=== PATIENT | female | born 1950 | race Caucasian/White ===

== ENCOUNTER 2016-09-21 10:57 | Observation (INO) | payer MEDICARE, MEDICAID ==
[2016-09-21] VITALS (12 sets, daily range): BP systolic 136–191; BP diastolic 75–97; PULSE 67–95; RESP 11–20; O2SAT 94–96
[~2016-09-21] VITALS: Ht 161.9 cm; Wt 77.4 kg
[~2016-09-21 10:57] MED LIST: CEPH500C PO; IBUP-1152 PO; IND40 PO; LEVO100T45 PO; LISI10TA9 PO; [UNRECOGNIZED DRUG - CODE] PO
--- NOTE | 2016-09-21 11:25 | ED.REPORT ---
HPI-General Illness Date of Service Sep 21, 2016 ED Provider: Zainab Hansen MD 65 year old female with HTN presents to the ER with right arm weakness onset this morning at 10:15. She states that she woke up this morning, got a cup of coffee, and sat down to write in her journal. After writing several lines she experienced sudden onset loss of function in her right hand, and was unable to write. Since the incident she has regained function of the extremity. Associated symptoms include a sensation of heaviness in her upper extremities. Patient denies history of CVA or ID. Nursing Notes Stated Complaint: RIGHT ARM WEAKNESS Chief Complaint: Neuro Symptoms/ Deficits Nursing Notes Reviewed: Yes Allergies: Coded Allergies: No Known Allergies (Unverified Allergy, Unknown, 09/21/16) Scheduled Acetylcysteine (Nac) 500 Mg Capsule Unknown Dose PO DAILY Amlodipine (Amlodipine) 5 Mg Tablet 5 MG PO DAILY Ascorbic Acid (Vitamin C) 1,000 Mg Tab.chew 1,000 MG PO BID Azithromycin (Zithromax (Z-Marshal)) 250 Mg Tablet 250 MG PO daily x 5 days Bupropion ER (Bupropion ER) 100 Mg Tablet.er 100 MG PO BID Cholecalciferol (Vitamin D3) (Vitamin D3) 1,000 Unit Tab.chew 1,000 UNIT PO DAILY Coconut Oil (Coconut Oil) 1,000 Mg Capsule 1,000 MG PO DAILY Hydrochlorothiazide (Hydrochlorothiazide) 12.5 Mg Capsule 12.5 MG PO QAM Lactobacillus Acidophilus (Probiotic) 1 Each Capsule 1 EACH PO DAILY Melatonin/Pyridoxine HCl (B6) (Melatonin 10 mg Tablet) 1 Each Tab.mphase 1 EACH PO HS Multivitamin (Once Daily) 1 Each Tablet 1 EACH PO DAILY [place]-3/Dha/Epa/Fish Oil (Fish Oil 1,000 mg Softgel) 1 Each Capsule 1 EACH PO DAILY Prasterone (Dhea) (Dhea) 25 Mg Capsule Unknown Dose PO DAILY Ranitidine (Zantac) 150 Mg Tablet 150 MG PO BID Scheduled PRN Buspirone (Buspirone) 10 Mg Tablet 10 MG PO BID PRN PRN For Anxiety Dextromethorphan HBr (Robitussin) 15 Mg Capsule 15 MG PO DAILY PRN PRN For Cough Meloxicam (Meloxicam) 7.5 Mg Tablet 7.5 MG PO BID PRN PRN For Pain Polyethylene Glycol 3350 (Miralax) 17 Gm Powd.pack 17 GM PO DAILY PRN PRN For Constipation General Time Seen by MD: 11:22 Chief Complaint Other (Right Arm Weakness) Hx Obtained From: Patient Arrived By: Walk-in Sudden in Onset?: Yes Onset Occurred: 1 - 4 hours ago (10:15) Similar Sx Previous: No Past Medical History Past Medical History Hypothyroid Reports: Hypertension Reports: Migraines Smoking History Current Every Day Smoker Social History Drug Use: In recovery Ambulatory Status Independent Review of Systems Full Review of Systems Respiratory: Denies: Non-productive cough, Shortness of breath Cardiovascular: Denies: Chest pain GI: Denies: Nausea, Vomiting Neurologic: Reports: Focal weakness (Right Arm), Denies: Change LOC, Confusion, Dizziness, Headache, Lightheaded, Numbness, Problem walking, Seizure, Shaking, Slurred speech, Syncope, Unable to speak, Vision change Complete sys rev & neg: except as marked. Physical Exam Vital Signs Vital Signs Date Time Temp Pulse Resp B/P Pulse Ox O2 Delivery O2 Flow Rate FiO2 09/21/16 13:12 67 11 191/94 96 Room Air 09/21/16 11:05 36 95 18 157/97 95 Room Air Initial VS: Reviewed Head / Eyes: Atraumatic, Normocephalic Neck: Supple, Non-tender, Full range of motion Extremities: Vascular intact, Neuro intact, No swelling, No tenderness Skin: Warm, Dry, No cyanosis Psychiatric: Mood/affect normal, Behavior normal, Normal thought content General/Constitutional: Awake, Alert, No acute distress, Well developed, Well nourished Respiratory / Chest: Breath sounds NL, No respiratory distress, No rales, No rhonchi, No wheezing Cardiovascular: Heart rate NL, Regular rhythm, Heart sounds NL, Cap refill not delayed, Peripheral circulation NL Neurologic: Oriented X3, Speech NL, No motor deficits, No sensory deficits )( TPA Administration/Criteria Stroke Thrombolytic Therapy : TPA Considered: No TPA Administered Intravenously: No, not indicated (NIH Score of 0. 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 (0) Horizontal EO Movements: None (0) Visual Paige: No visual loss (0) Facial Palsy: Normal symmetry (0) Right Arm Motor Drift (10s): No drift 10 sec (0) Left Arm Motor Drift (10s): No drift 10 sec (0) Right Leg Motor Drift (5s): No drift 5 sec (0) Left Leg Motor Drift (5s): No drift 5 sec (0) Limb Ataxia FNF/Heel-Crenshaw: No ataxia (0) Sensation (Arms/Legs/Face): No sensory loss (0) Language Aphasia: No aphasia, normal (0) Dysarthria: No dysarthria, normal (0) Extinction/Inattention: No exctinct/inattent (0) NIHSS Score: 0 Time NIHSS Performed: 11:30 Date NIHSS Performed: Sep 21, 2016 Interpretation & Diagnostics Lab Results Interpretation Result Diagram: 09/21/16 1210 09/21/16 1205 Test 09/21/16 12:05 09/21/16 12:10 Sodium Level 141mEq/L (134-144) Potassium Level 4.1mEq/L (3.5-5.2) Chloride Level 102mEq/L (97-108) Carbon Dioxide Level 23mmol/L (18-29) Blood Urea Nitrogen 20mg/dL (8-27) Creatinine 0.73mg/dL (0.57-1.00) Estimat Glomerular Filtration Rate 114mL/min (>59) Glucose Level 110mg/dL (60-99) Calcium Level 9.0mg/dL (8.5-10.1) Total Bilirubin 0.4mg/dL (0.0-1.2) Aspartate Amino Transf (AST/SGOT) 22U/L (0-50) Alanine Aminotransferase (ALT/SGPT) 32U/L (0-32) Alkaline Phosphatase 69U/L (25-165) Troponin T 0.010ug/L (0.0-0.011) Total Protein 7.0g/dL (6.4-8.4) Albumin 4.4g/dL (3.4-5.0) White Blood Count 8.1th/mm3 (3.8-10.1) Red Blood Count 4.36mil/mm3 (3.90-5.20) Hemoglobin 14.4g/dL (12.0-15.6) Hematocrit 42.2% (35.0-46.0) Mean Corpuscular Volume 96.8fL (81-100) Mean Corpuscular Hemoglobin 33.0pg (27.0-35.0) Mean Corpuscular Hemoglobin Concent 34.1% (32.0-37.0) Red Cell Distribution Width 13.4% (12.3-15.4) Platelet Count 198bil/L (150-400) Neutrophils (%) (Auto) 57.4% (40-74) Lymphocytes (%) (Auto) 26.2% (14-46) Monocytes (%) (Auto) 9.1% (4-12) Eosinophils (%) (Auto) 4.9% (0-5) Basophils (%) (Auto) 1.0% (0-3) Hold Clements Top Tube Received (Received) ECG Interpretation Time: 12:57 Interpreted by: ED physician Normal ECG Interpretation: Normal rate, Normal sinus rhythm, No acute ischemic changes, Normal QRS, Normal axis, Normal intervals, No change from prior ECGs, Adequate tracing CT Head Interpretation PROCEDURE: CT ANGIO BRAIN NECK TPA IMPRESSION: 1. No hemodynamically significant stenosis or vascular occlusion. 2. No acute intracranial disease process. 3. No intracranial hemorrhage. 4. Findings telephoned to Dr. Zainab Hansen on 09/21/2016 at 1247 hrs. Dictated by: Junie Mathews MD, PhD on 09/21/2016 at 12:44 Approved by: Junie Mathews MD, PhD on 09/21/2016 at 12:54 Study: Head CT w contrast Interpretation / Wet Read by: Interpret - Radiologist Re-Eval/Medical Decision Source of Hx: Old records Time of Eval: 11:32 Re-Evaluation/Progress Note: Discussed need for admission and plan of care. Patient is amenable to the plan. Consultation #1: Referral / Consult Name: Junie Mathews MD, PhD Consulted With: On-call physician (Radiology) Call Returned at: 12:51 Note: No thrombus on CT. Consultation #2: Referral / Consult Name: Aaliyah Flowers MD Consulted With: Hospitalist Call Returned at: 14:23 Patient Resource Coordinator: Agrees with eval, Agrees with plan, Accepts admit Counseled Regarding: Diagnosis, Lab results, Need for admission Discharge & Departure Primary Impression: TIA (transient ischemic attack) Disposition: ADMITTED TO HOSPITAL Discharge Condition All VS Reviewed: Yes Condition: Stable Referrals: Matilde Oconnor MD (PCP) Gustavo Attestation Portions of this note were transcribed by Patel Triana. I, Dr. Hansen, personally performed the history, physical exam and medical decision-making; I reviewed and confirmed the accuracy of the information in the transcribed note. Signed by: Gustavo Perez, 09/21/2016 and 14:24 copies to: Matilde Oconnor MD, Shawna L MD Sep 21, 2016 11:25 PATEL TRIANA Sep 21, 2016 11:29
[2016-09-21 12:26] LABS: EOSINOPHILS % (AUTO) 4.9 % (0-5); MONOCYTES % (AUTO) 9.1 % (4-12); Mean Corpuscular Volume 96.8 fL (81-100); NEUTROPHILS % (AUTO) 57.4 % (40-74); Platelet Count 198 bil/L (150-400)
[2016-09-21 12:48] LABS: TROPONIN T 0.01 ug/L (0.0-0.011)
--- NOTE | 2016-09-21 12:56 | DRSVH ---
PROCEDURE: CT ANGIO BRAIN NECK TPA INDICATIONS: RIGHT HAND WEAKNESS TECHNIQUE: Pre-contrast 4.5 mm thick sections acquired from the foramen magnum to the vertex. After the adminis tration of intravenous contrast, 1 mm thick sections acquired from the aortic arch through the [place] of [place]. Post-contrast 4.5 mm thick sections then re-acquired from the foramen magnum to the vert ex. 3-dimensional hjnsbom-nxtkputvf-mlvdmexrzh (MIP) and/or volume rendering reformats were acquired of the central intracranial vasculature and neck separately. For radiation dose reduction, the foll owing was used: automated exposure control, adjustment of mA and/or kV according to patient size. COMPARISON: None. FINDINGS: Image quality: Excellent. BRAIN: CSF spaces: Ventricles are normal in size and shape. Basal cisterns are patent. No extra-axial flu id collections. Brain: No midline shift. No intracranial bleeds or masses. Walker-white matter interface appears int act. Skull and face: Calvarium and facial bones appear intact, without suspicious lesions. Orbits appear normal. Sinuses: Sinuses and mastoids are clear. HEAD CT ANGIOGRAPHY: Anterior circulation: Intracranial internal carotid arteries are normal in flow. Calcified atherosc lerotic plaque is noted in the cavernous segments of the internal carotid arteries bilaterally. Ather osclerosis causes moderate stenosis of the cavernous segment of the left internal carotid artery and mild stenosis of the cavernous segment of the right internal carotid artery The flow within the paire d anterior cerebral arteries is normal and symmetric. The flow within the middle cerebral arteries i s normal and symmetric. The anterior communicating artery is seen. No aneurysms are seen. Posterior circulation: Visualized portions of the vertebral arteries demonstrate normal caliber, and join to form a normal appearing basilar artery. Flow within the posterior cerebral arteries is norm al and symmetric. No aneurysms are seen. Normal contrast opacification of the dural sinuses is noted. NECK CT ANGIOGRAPHY: Carotid system: The great vessels demonstrate a conventional anatomy as they arise from the aortic a rch. The origins of the common carotid arteries appear patent. The common carotid arteries demonstr ate normal courses. Atherosclerotic plaque is noted in the origin of the internal carotid arteries bi laterally which causes less than 50% stenosis. The bifurcation regions are both widely patent. The internal carotid arteries demonstrate normal calibers and courses. Posterior circulation: The origins of the vertebral arteries both appear widely patent. The more galo perior extracranial portions of both vertebral arteries also demonstrate normal courses and calibers. They join to form a normal appearing basilar artery. Soft tissues: Visualized neck soft tissues demonstrate no suspicious abnormalities. Bones: No suspicious bony lesions. Visualized cervical spine appears normally aligned. IMPRESSION: 1. No hemodynamically significant stenosis or vascular occlusion. 2. No acute intracranial disease process. 3. No intracranial hemorrhage. 4. Findings telephoned to Dr. Zainab Hansen on 09/21/2016 at 1247 hrs. Dictated by: Junie Mathews MD, PhD on 09/21/2016 at 12:44 Approved by: Junie Mathews MD, PhD on 09/21/2016 at 12:54
[2016-09-21] MEDS ORDERED: HYDR12.5 PO (14:50)
[2016-09-21] MEDS ORDERED: ASCO100089 PO (14:50)
[2016-09-21] MEDS ORDERED: DEXT15CA28 PO (14:50)
[2016-09-21] MEDS ORDERED: AMLO5TAB2 PO (14:50)
[2016-09-21] MEDS ORDERED: RANI150T11 PO (14:50)
[2016-09-21] MEDS ORDERED: MULT-666 PO (14:50)
[2016-09-21] MEDS ORDERED: BUPR100T8 PO (14:50)
[2016-09-21] MEDS ORDERED: BUSP10TA2 PO (14:50)
[2016-09-21] MEDS ORDERED: AZIT250T4 PO (14:50)
[2016-09-21] MEDS ORDERED: MELO-259 PO (14:50)
[2016-09-21] MEDS ORDERED: OMEG-38 PO (14:51)
[2016-09-21] MEDS ORDERED: COCO1000 PO (14:51)
[2016-09-21] MEDS ORDERED: POLY17PO6 PO (14:51)
[2016-09-21] MEDS ORDERED: PRAS25CA PO (14:51)
[2016-09-21] MEDS ORDERED: CHOL10008 PO (14:51)
[2016-09-21] MEDS ORDERED: LACT1CAP65 PO (14:51)
[2016-09-21] MEDS ORDERED: MELA1TAB21 PO (14:51)
[2016-09-21] MEDS ORDERED: ACET500C47 PO (14:51)
[2016-09-21] MEDS ORDERED: Ondansetron 2 mg/mL 2 mL Inj IVPUSH PRN (15:15)
[2016-09-21] MEDS ORDERED: Polyethylene Glycol (PEG) 17 Gm Powder PO PRN (15:30)
[2016-09-21] MEDS ORDERED: Alum-Mag Hydrox-Simeth 30 mL Suspension PO PRN (15:30)
[2016-09-21] MEDS ORDERED: Labetalol 5 mg/mL 4 mL Inj IVPUSH PRN (15:30)
[2016-09-21] MEDS ORDERED: Ondansetron 2 mg/mL 2 mL Inj IV PRN (15:30)
[2016-09-21 15:48] LABS: INR 0.95 ratio
--- NOTE | 2016-09-21 15:49 | PCM.HPMED ---
Subjective Date of Service Sep 21, 2016 Primary Provider: Admitting Physician: Aaliyah Flowers MD Primary Care Physician: Matilde Oconnor MD Attending Physician: Aaliyah Flowers MD Admit Status: From the Emergency Department, 23-Hour Observation, Remote Telemetry Chief Complaint: Right hand clumsiness History of Present Illness: This is a 65-year-old female who has a history of hypertension who presented with right hand weakness and clumsiness. She notes it lasted for about an hour. Started this morning at about 10 AM when she was doing some writing in a journal. She notes it was most dramatic over the first 20 minutes and then took about an hour to completely resolve. She notes no prior history of similar. She notes it was only her hand and not her arm per se. She noted no visual changes. She does not take aspirin at home. Has never had any neurological symptoms prior to this. Her evaluation in the emergency room included negative CTA scan of head and neck which did not reveal any abnormalities. Review of Systems: All other review of systems are reviewed and are negative except for as in history of present illness. Allergies Coded Allergies: No Known Allergies (Unverified Allergy, Unknown, 09/21/16) Home Medications Norvasc 5 mg by mouth daily Wellbutrin ER 100 mg by mouth twice a day BuSpar 10 mg by mouth twice a day when necessary anxiety Hydrochlorothiazide 12.5 mg by mouth daily Lactobacillus by mouth daily Melatonin 10 mg by mouth daily Meloxicam 7.5 mg by mouth twice a day when necessary pain Multiple vitamin 1 tablet by mouth daily Zantac 150 mg by mouth twice a day PMH Past Medical History Hypothyroid Reports: Hypertension Reports: Migraines Surgical History Status post tubal ligation Status post hysterectomy Family History Goiter with a history of carotid stenosis and femoral artery stenosis in her 60s Social History Hx Alcohol Use: No (not for 28 years, hx of etoh) Hx Substance Use: Yes ( rehab facility for narcotic abuse 2009) Hx Tobacco Use: Yes (4-5 cigarettes a day) Smoking Status: Current Every Day Smoker Living Arrangement: with Family Exam Vital Signs Vital Sign - Last Date Time Temp Pulse Resp B/P Pulse Ox O2 Delivery O2 Flow Rate FiO2 09/21/16 14:46 68 16 173/77 95 09/21/16 14:17 36 Room Air Exam Constitutional: Middle-aged woman in no acute distress Head: Normocephalic atraumatic Eyes: PERRLA DC EOMI Mouth: No lesions Neck: Carotids 2+ over 4 without bruits Chest: Clear to auscultation Cor: Regular rate and rhythm S1-S2 without murmur Abdomen: Soft nontender bowel sounds present Extremities: No pedal edema noted Skin: No rashes Psych: Mood and affect are appropriate Neurological: Alert and oriented 3, motor and sensory are intact bilaterally Lab and Diagnostics Labs Laboratory Tests 72 Hours Test 09/21/16 12:05 09/21/16 12:10 Prothrombin Time 10.1sec (8.1-12.5) Prothromb Time International Ratio 0.95ratio Sodium Level 141mEq/L (134-144) Potassium Level 4.1mEq/L (3.5-5.2) Chloride Level 102mEq/L (97-108) Carbon Dioxide Level 23mmol/L (18-29) Blood Urea Nitrogen 20mg/dL (8-27) Creatinine 0.73mg/dL (0.57-1.00) Estimat Glomerular Filtration Rate 114mL/min (>59) Glucose Level 110mg/dL (60-99) Calcium Level 9.0mg/dL (8.5-10.1) Magnesium Level 2.3mg/dL (1.6-2.6) Total Bilirubin 0.4mg/dL (0.0-1.2) Aspartate Amino Transf (AST/SGOT) 22U/L (0-50) Alanine Aminotransferase (ALT/SGPT) 32U/L (0-32) Alkaline Phosphatase 69U/L (25-165) Troponin T 0.010ug/L (0.0-0.011) Total Protein 7.0g/dL (6.4-8.4) Albumin 4.4g/dL (3.4-5.0) White Blood Count 8.1th/mm3 (3.8-10.1) Red Blood Count 4.36mil/mm3 (3.90-5.20) Hemoglobin 14.4g/dL (12.0-15.6) Hematocrit 42.2% (35.0-46.0) Mean Corpuscular Volume 96.8fL (81-100) Mean Corpuscular Hemoglobin 33.0pg (27.0-35.0) Mean Corpuscular Hemoglobin Concent 34.1% (32.0-37.0) Red Cell Distribution Width 13.4% (12.3-15.4) Platelet Count 198bil/L (150-400) Neutrophils (%) (Auto) 57.4% (40-74) Lymphocytes (%) (Auto) 26.2% (14-46) Monocytes (%) (Auto) 9.1% (4-12) Eosinophils (%) (Auto) 4.9% (0-5) Basophils (%) (Auto) 1.0% (0-3) Hold Clements Top Tube Received (Received) Result Diagram: 09/21/16 1210 09/21/16 1205 X-Rays, CTs and MRIs PROCEDURE: CT ANGIO BRAIN NECK TPA INDICATIONS: RIGHT HAND WEAKNESS TECHNIQUE: Pre-contrast 4.5 mm thick sections acquired from the foramen magnum to the vertex. After the administration of intravenous contrast, 1 mm thick sections acquired from the aortic arch through the [place] of [place]. Post-contrast 4.5 mm thick sections then re-acquired from the foramen magnum to the vertex. 3- dimensional pblciwh-yxmochxgv-kzwbmrvgvo (MIP) and/or volume rendering reformats were acquired of the central intracranial vasculature and neck separately. For radiation dose reduction, the following was used: automated exposure control, adjustment of mA and/or kV according to patient size. COMPARISON: None. FINDINGS: Image quality: Excellent. BRAIN: CSF spaces: Ventricles are normal in size and shape. Basal cisterns are patent. No extra-axial fluid collections. Brain: No midline shift. No intracranial bleeds or masses. Walker-white matter interface appears intact. Skull and face: Calvarium and facial bones appear intact, without suspicious lesions. Orbits appear normal. Sinuses: Sinuses and mastoids are clear. HEAD CT ANGIOGRAPHY: Anterior circulation: Intracranial internal carotid arteries are normal in flow. Calcified atherosclerotic plaque is noted in the cavernous segments of the internal carotid arteries bilaterally. Atherosclerosis causes moderate stenosis of the cavernous segment of the left internal carotid artery and mild stenosis of the cavernous segment of the right internal carotid artery The flow within the paired anterior cerebral arteries is normal and symmetric. The flow within the middle cerebral arteries is normal and symmetric. The anterior communicating artery is seen. No aneurysms are seen. Posterior circulation: Visualized portions of the vertebral arteries demonstrate normal caliber, and join to form a normal appearing basilar artery. Flow within the posterior cerebral arteries is normal and symmetric. No aneurysms are seen. Normal contrast opacification of the dural sinuses is noted. NECK CT ANGIOGRAPHY: Carotid system: The great vessels demonstrate a conventional anatomy as they arise from the aortic arch. The origins of the common carotid arteries appear patent. The common carotid arteries demonstrate normal courses. Atherosclerotic plaque is noted in the origin of the internal carotid arteries bilaterally which causes less than 50% stenosis. The bifurcation regions are both widely patent. The internal carotid arteries demonstrate normal calibers and courses. Posterior circulation: The origins of the vertebral arteries both appear widely patent. The more superior extracranial portions of both vertebral arteries also demonstrate normal courses and calibers. They join to form a normal appearing basilar artery. Soft tissues: Visualized neck soft tissues demonstrate no suspicious abnormalities. Bones: No suspicious bony lesions. Visualized cervical spine appears normally aligned. IMPRESSION: 1. No hemodynamically significant stenosis or vascular occlusion. 2. No acute intracranial disease process. 3. No intracranial hemorrhage. 4. Findings telephoned to Dr. Zainab Hansen on 09/21/2016 at 1247 hrs. Dictated by: Junie Mathews MD, PhD on 09/21/2016 at 12:44 Approved by: Junie Mathews MD, PhD on 09/21/2016 at 12:54 12-lead ECG Sinus rhythm at a rate of 67, no acute abnormalities Assessment & Plan # Possible TIA with right hand clumsiness, acute, resolved, present on admission Check MRI of brain Check echocardiogram Initiate ASA daily CTA of head and neck have already been done without any significant findings Placed on telemetry. # Hypertension, chronic, present on admission Continue current patient's medication regimen Monitor blood pressure # History of anxiety depression, chronic, present on admission Continue current medication regimen # DVT prophylaxis Prophylactic subcutaneousLovenox # Code status Full code Resuscitation Status: CPR: Attempt Resuscitation Time spent 60 minutes Aaliyah Flowers MD Sep 21, 2016 15:49
[2016-09-21] MEDS ORDERED: [UNRECOGNIZED DRUG - CODE] PO (16:03)
--- NOTE | 2016-09-21 18:22 | NUR ---
Arrival/BP Pt arrived via w/ch from ER at 1530. Able to stand and transfer to bed indep. Up to BR, voided before hat was able to place. Pt signed diet against advice form as TUBE COATER not in house and not wanting to eat puree diet. Passed nursing swallow screen in the ER. 1730 paged as pt concerned about continued increase BP, returned call and stated ok to give labetolol despite not meeting criteria. re-took BP, reviewed with patient who stated would rather wait on the IV medication, now asking for buspar - called pharmacy to bring up. Family brought in hamburger and fries with patient. Reviewed what heart healthy diet consists of, S.O took the hamburger with him Tolerating heart healthy diet without signs of cough or choking.
--- NOTE | 2016-09-21 18:28 | NUR ---
[place] this before Pt/family report that she has felt this same sensation prior, unsure of timing. Also reports a bump on right side of head, non-painful just behind right adventist.
[2016-09-21] MEDS: guaiFENesin DM 200-20 mg/10 mL Syrup PO PRN (18:32)
[2016-09-21] MEDS: BusPIRone 15 mg Dividose Tablet PO PRN (18:32)
--- NOTE | 2016-09-21 18:38 | NUR ---
Case Management: SHERRILL explained to patient (and many family members) at 1700 all questions answered. Signed original placed in chart, copy given to patient. "How Medicare Covers Self-Administered Drugs Given in Hospital Outpatient Settings" given to patient. Aurelia Montanez RN
[2016-09-21] MEDS: buPROPion SR 100 mg ER12 Tablet PO SCH (20:59)
[2016-09-21 22:17] LABS: APPEARANCE,URINE CLEAR (CLEAR,HAZY); COLOR,URINE YELLOW (YELLOW); OCCULT BLOOD,URINE NEGATIVE (NEGATIVE); UROBILINOGEN,URINE NORMAL (NORMAL)
[2016-09-22] MEDS: guaiFENesin DM 200-20 mg/10 mL Syrup PO PRN ×2 (00:19→10:31)
[2016-09-22] MEDS: BusPIRone 15 mg Dividose Tablet PO PRN ×2 (01:52→15:08)
[2016-09-22 04:47] VITALS: BP 170/88; PULSE 70; RESP 18; O2SAT 97
--- NOTE | 2016-09-22 06:37 | NUR ---
Activity Pt up independent in room. Pt has stable gait, zero weakness in legs and arms. 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 Pt does have mild to moderate anxiety about stay in hospital. AOX3, PENG. Pt reports 0 pain.
--- NOTE | 2016-09-22 07:20 | NUR ---
MRI Pt at MRI on shift change. Addendum: 09/22/16 at 0757 by MONSERRAT RICKS RN Pt back from MRi at 0735 Stable and w/o complaints. SR 67 on tele. A&ox4.
[2016-09-22 08:00] VITALS: BP 138/78; PULSE 67; RESP 12; O2SAT 96
[2016-09-22] MEDS: buPROPion SR 100 mg ER12 Tablet PO SCH (08:06)
[2016-09-22] MEDS ORDERED: Omega-3 Fatty Acids 1,000 mg Capsule PO SCH (08:30)
[2016-09-22 10:15] VITALS: PULSE 65
--- NOTE | 2016-09-22 10:58 | NUR ---
Rounds notified that pt reports increased word and "thought" searching since admit. Family at bedside requesting discussion with . aware. Addendum: 09/22/16 at 1134 by MONSERRAT RICKS RN MD discussed pt symptoms of word searching at bedside. All family questions answered/addressed. Reinforced stroke education.
--- NOTE | 2016-09-22 11:39 | DRSVH ---
PROCEDURE: MRI BRAIN WITHOUT CONTRAST ([id number]) INDICATIONS: tia TECHNIQUE: Non-contrast axial T1 spin echo, axial T2 fast spin echo, sagittal and axial FLAIR, coronal T2 fast s pin echo, axial gradient echo, axial diffusion and ADC through the brain. COMPARISON: None. FINDINGS: Image quality: Excellent. CSF spaces: Ventricles appear symmetric in size and shape. Basal cisterns are patent. No extra-axi al fluid collections. Brain: No intracranial bleeds or mass effects. There is cerebral volume loss for age. There are mi nimal periventricular and deep white matter chronic small vessel ischemic changes. Brainstem appears normal. Diffusion-weighted images show no acute ischemic insults. No chronic ischemic insults. No rmal intravascular flow voids are present. Skull and face: Calvarial bone marrow is normal in signal. Orbits are normal. Sinuses: Sinuses and mastoids are clear. IMPRESSION: 1. No acute intracranial disease process. 2. No areas of acute or chronic infarction. Dictated by: Junie Mathews MD, PhD on 09/22/2016 at 11:33 Approved by: Junie Mathews MD, PhD on 09/22/2016 at 11:38
[2016-09-22 12:34] VITALS: BP 147/82; PULSE 71; RESP 12; O2SAT 96
--- NOTE | 2016-09-22 14:23 | DRSVH ---
[facility] [address] [place] [address] Echocardiogram Report Name: ANAND CARDONA Study Date: 09/22/2016 Height: 63 in Hospital Exam Location: [facility] Weight: 170 lb Gender: Female BSA: 1.8 m2 : 1950 Age: 65 yrs BP: 170/88 mmHg Reason For Study: TIA Ordering Physician: HOSPITALIST [facility] Performed By: [facility] Staff Referring Physician: FAMILIA FIGUEREDO Interpretation Summary The left ventricle is normal in size and appears mildly hyperdynamic with the ejection fraction visually estimated to be 75-80% with a mild dyssynchronous contraction pattern, consistent with a conduction abnormality but no focal wall motion abnormalities. Assessment of diastolic parameters indicates a relaxation abnormality of the left ventricle, consistent with normal filling pressures. The right ventricle is normal in size and function. Pulmonary artery pressures cannot be estimated because of the lack of a measurable TR jet velocity but the IVC suggests a low right atrial pressure of 3 mm Hg. Both atria are normal in size. The interatrial septum is intact with no evidence for an atrial septal defect by Doppler exam or injection of contrast. The interatrial septum bows toward the right atrium, consistent with probable elevated left atrial pressure. There is no significant valvular heart disease. Procedure: A two-dimensional transthoracic echocardiogram with color flow and Doppler was performed. There is no prior echocardiogram noted for this patient. A saline contrast injection was performed to assess for cardiac shunting. The patient was in normal sinus rhythm during the exam. Left Ventricle: The left ventricle is normal in size. There is normal left ventricular wall thickness. The left ventricle is mildly hyperdynamic. The ejection fraction is estimated to be 75-80%. There is a mild dyssynchronous contraction pattern, consistent with a conduction abnormality. There are no focal wall motion abnormalities. Assessment of diastolic parameters indicates a relaxation abnormality of the left ventricle, consistent with normal filling pressures. Right Ventricle: The right ventricle is normal in size and function. Atria: Both atria are normal in size. The interatrial septum is intact with no evidence for an atrial septal defect. There is no Doppler evidence for an atrial septal defect. Injection of contrast documented no interatrial shunt. The interatrial septum bows toward right atrium consistent with elevated left atrial pressure. Mitral Valve: There is mild mitral annular calcification. There is trace mitral regurgitation. Aortic Valve: The aortic valve is trileaflet. The aortic valve is slightly calcified. The aortic valve opens well. There is no aortic valve stenosis. No aortic regurgitation is present. Tricuspid Valve: The tricuspid valve is normal in structure and function. There is trace tricuspid regurgitation. Pulmonary artery pressures cannot be estimated because of the lack of a measurable TR jet velocity. Pulmonic Valve: The pulmonic valve is normal in structure and function. There is no pulmonic valvular regurgitation. There is no significant valvular heart disease. Great Vessels: The aortic root is normal size. The dimensions of the ascending aorta are normal. The IVC is of normal diameter and collapses greater than 50% with a sniff. This suggests a low right atrial pressure of 3 mm Hg. Pericardium/ Pleura There is no pericardial effusion. There is no pleural effusion. MMode/2D Measurements & Calculations LVIDd: 4.0 cm RA long axis LVOT diam LVIDs: 2.7 cm LA A2 area: 17.6 cm FS: 33.3 % LA A4 area: 18.0 cm RA area AoV Opening EPSS: 0.74 cm LA length (vol): 5.0 cm IVSd: 0.87 cm LA vol: 53.9 ml : 8.6 cm Ao root diam LVPWd: 0.95 cm LA vol index RA vol : 14.4 ml asc Aorta Diam : 29.9 ml/m2 RA : 8.0 mm2 LV lopez. diameter/BSA LV sys. diameter/BSA RVD1 (basal) TAPSE: 2.6 cm (cm/m^2): 2.2 (cm/m^2): 1.5 Doppler Measurements & Calculations Ao V2 max MV E max monster MV E/A: 0.76 PA V2 max : 172.8 cm/sec : 69.6 cm/sec Med Peak E' Monster : 77.1 cm/sec Ao max PG MV A max monster PA mean PG : 12.0 mmHg : 91.0 cm/sec E/E' med: 13.7 Ao mean PG MV P1/2t: 70.0 msec Lat Peak E' Monster PA Accel Time : 0.11 sec LVOT Max Monster E/E' lat: 12.9 : 140.4 cm/sec E/e' average: 13.3 MARTHA(I,D): 2.7 cm sev ratio MV dec time MV P1/2t max monster Ao V2 mean LV V1 max PG : 0.24 sec : 111.7 cm/sec Ao V2 VTI: 31.8 cm LV V1 VTI MVA(P1/2t): 3.1 cm2 : 26.9 cm MARTHA(V,D): 2.6 cm2 PA V2 mean MARTHA indexed to BSA : 47.4 cm/sec (cm^2/m^2): 1.5 PA pr(Accel) : 20.8 mmHg Reading Physician:02:22 PM
--- NOTE | 2016-09-22 15:25 | PCM.DC.MED ---
Discharge Summary Date of Service Sep 22, 2016 Dates of Hospitalization Date of Hospital Admission Sep 21, 2016 at 13:55 Date of Discharge: Sep 22, 2016 Providers: Admitting Physician: Aaliyah Flowers MD Primary Care Physician: Matilde Oconnor MD Attending Physician: Aaliyah Flowers MD Diagnosis at Time of Discharge Diagnosis at Time of Discharge TIA/CVA Consultations None Procedures XRay, CTs & MRIs MRI Brain 09/22 1. No acute intracranial disease process. 2. No areas of acute or chronic infarction. CT ANGIO BRAIN/NECK BRAIN: CSF spaces: Ventricles are normal in size and shape. Basal cisterns are patent. No extra-axial fluid collections. Brain: No midline shift. No intracranial bleeds or masses. Walker-white matter interface appears intact. Skull and face: Calvarium and facial bones appear intact, without suspicious lesions. Orbits appear normal. Sinuses: Sinuses and mastoids are clear. HEAD CT ANGIOGRAPHY: Anterior circulation: Intracranial internal carotid arteries are normal in flow. Calcified atherosclerotic plaque is noted in the cavernous segments of the internal carotid arteries bilaterally. Atherosclerosis causes moderate stenosis of the cavernous segment of the left internal carotid artery and mild stenosis of the cavernous segment of the right internal carotid artery The flow within the paired anterior cerebral arteries is normal and symmetric. The flow within the middle cerebral arteries is normal and symmetric. The anterior communicating artery is seen. No aneurysms are seen. Posterior circulation: Visualized portions of the vertebral arteries demonstrate normal caliber, and join to form a normal appearing basilar artery. Flow within the posterior cerebral arteries is normal and symmetric. No aneurysms are seen. Normal contrast opacification of the dural sinuses is noted. NECK CT ANGIOGRAPHY: Carotid system: The great vessels demonstrate a conventional anatomy as they arise from the aortic arch. The origins of the common carotid arteries appear patent. The common carotid arteries demonstrate normal courses. Atherosclerotic plaque is noted in the origin of the internal carotid arteries bilaterally which causes less than 50% stenosis. The bifurcation regions are both widely patent. The internal carotid arteries demonstrate normal calibers and courses. Posterior circulation: The origins of the vertebral arteries both appear widely patent. The more superior extracranial portions of both vertebral arteries also demonstrate normal courses and calibers. They join to form a normal appearing basilar artery. Soft tissues: Visualized neck soft tissues demonstrate no suspicious abnormalities. Bones: No suspicious bony lesions. Visualized cervical spine appears normally aligned. IMPRESSION: 1. No hemodynamically significant stenosis or vascular occlusion. 2. No acute intracranial disease process. 3. No intracranial hemorrhage. Approved by: Junie Mathews MD, PhD on 09/21/2016 at 12:54 ECG 12 Lead Sinus rhythm at a rate of 67, no acute abnormalities Cardiac Echo Impression 09/22 Interpretation Summary The left ventricle is normal in size and appears mildly hyperdynamic with the ejection fraction visually estimated to be 75-80% with a mild dyssynchronous contraction pattern, consistent with a conduction abnormality but no focal wall motion abnormalities. Assessment of diastolic parameters indicates a relaxation abnormality of the left ventricle, consistent with normal filling pressures. The right ventricle is normal in size and function. Pulmonary artery pressures cannot be estimated because of the lack of a measurable TR jet velocity but the IVC suggests a low right atrial pressure of 3 mm Hg. Both atria are normal in size. The interatrial septum is intact with no evidence for an atrial septal defect by Doppler exam or injection of contrast. The interatrial septum bows toward the right atrium, consistent with probable elevated left atrial pressure. There is no significant valvular heart disease. Brief History 65-year-old female who has a history of hypertension who presented with right hand weakness and clumsiness. She notes it lasted for about an hour. Started this morning at about 10 AM when she was doing some writing in a journal. She notes it was most dramatic over the first 20 minutes and then took about an hour to completely resolve. She notes no prior history of similar. She notes it was only her hand and not her arm per se. She noted no visual changes. She does not take aspirin at home. Has never had any neurological symptoms prior to this. Her evaluation in the emergency room included negative CTA scan of head and neck which did not reveal any abnormalities. Hospital Course 65-year-old female admit 09/21 w/ right hand weakness and clumsiness. She notes it lasted for about an hour. # TIA w/ right hand clumsiness, acute, resolved, present on admission, MRI of brain normal 09/22, echo 09/22 abn but not source, ASA daily, CTA of head and neck have already been done without any significant findings 09/21, tely wnl. # Hypertension, chronic, present on admission, Continue current patient's medication regimen, Monitor blood pressure. OK f/u out pt #Hyperlipidemia-goal LDL is less than 100 in the setting we will start her on atorvastatin on discharge. # History of anxiety depression, chronic, present on admission- Continue current medication regimen # DVT prophylaxis- Prophylactic subcutaneous Lovenox # Code status -Full code Workup completed, symptoms largely subsided PT cleared the patient, no note from OT at the time of discharge, speech of evaluated the patient and cleared her swallow however she probably will benefit from some more language therapy. I do not see a note to that extent here. I will refer as an outpatient if she wants to be discharged. Exam Vital Signs (Last) Date Time Temp Pulse Resp B/P Pulse Ox O2 Delivery O2 Flow Rate FiO2 09/22/16 12:34 71 12 147/82 96 Room Air 09/22/16 08:00 36.8 Exam Gen.- A+ O 3 no apparent distress. Heavy female who walked out the door past az and now is sitting on the bed Eyes- open conjunctiva clear, pupils equal nonicteric Mouth- oral mucosa moist, no exudate ENT- ears normal, nose normal Neck- supple/trach midline CVS- RRR no murmur or gallop Lungs- CTA GI- NABS/NT soft Musc- moving 4 no obvious deformity Neuro- cranial nerves II through XII intact to gross examination, nonfocal subjectively she states there are some issues with word finding I find her speech fluid and coherent. Skin- warm and dry, no rashes/lesions/wounds noted Psych- pleasant and appropriate, Test 09/21/16 12:05 09/21/16 12:10 09/21/16 21:55 09/22/16 06:30 Prothrombin Time 10.1sec (8.1-12.5) Prothromb Time International Ratio 0.95ratio Sodium Level 141mEq/L (134-144) Potassium Level 4.1mEq/L (3.5-5.2) Chloride Level 102mEq/L (97-108) Carbon Dioxide Level 23mmol/L (18-29) Blood Urea Nitrogen 20mg/dL (8-27) Creatinine 0.73mg/dL (0.57-1.00) Estimat Glomerular Filtration Rate 114mL/min (>59) Glucose Level 110mg/dL (60-99) Hemoglobin A1c 5.6% (4.8-5.6) Calcium Level 9.0mg/dL (8.5-10.1) Magnesium Level 2.3mg/dL (1.6-2.6) Total Bilirubin 0.4mg/dL (0.0-1.2) Aspartate Amino Transf (AST/SGOT) 22U/L (0-50) Alanine Aminotransferase (ALT/SGPT) 32U/L (0-32) Alkaline Phosphatase 69U/L (25-165) Troponin T 0.010ug/L (0.0-0.011) Total Protein 7.0g/dL (6.4-8.4) Albumin 4.4g/dL (3.4-5.0) White Blood Count 8.1th/mm3 (3.8-10.1) Red Blood Count 4.36mil/mm3 (3.90-5.20) Hemoglobin 14.4g/dL (12.0-15.6) Hematocrit 42.2% (35.0-46.0) Mean Corpuscular Volume 96.8fL (81-100) Mean Corpuscular Hemoglobin 33.0pg (27.0-35.0) Mean Corpuscular Hemoglobin Concent 34.1% (32.0-37.0) Red Cell Distribution Width 13.4% (12.3-15.4) Platelet Count 198bil/L (150-400) Neutrophils (%) (Auto) 57.4% (40-74) Lymphocytes (%) (Auto) 26.2% (14-46) Monocytes (%) (Auto) 9.1% (4-12) Eosinophils (%) (Auto) 4.9% (0-5) Basophils (%) (Auto) 1.0% (0-3) Hold Clements Top Tube Received (Received) Urine Color Yellow (YELLOW) Urine Appearance Clear (CLEAR,HAZY) Urine pH 5.0 (5.0-8.0) Urine Specific [place] 1.015 (1.003-1.035) Urine Protein Negativemg/dL (NEG,TRACE) Urine Glucose (UA) Negativemg/dL (NEGATIVE) Urine Ketones Negativemg/dL (NEGATIVE) Urine Occult Blood Negative (NEGATIVE) Urine Nitrite Negative (NEGATIVE) Urine Bilirubin Negative (NEGATIVE) Urine Urobilinogen Normalmg/dL (NORMAL) Urine Leukocyte Esterase Negative (NEGATIVE) Urine RBC 0-2/hpf (0-2) Urine WBC 0-5/hpf (0-5) Urine Epithelial Cells Few/hpf (NONE-MOD) Urine Crystals None seen (NONE SEEN) Urine Bacteria None/hpf (NONE-FEW) Urine Hyaline Casts None/lpf (NONE) Urine Granular Casts None seen (NONE SEEN) Urine Waxy Casts None seen (NONE SEEN) Urine Red Blood Cell Casts None seen (NONE SEEN) Urine White Blood Cell Casts None seen (NONE SEEN) Urine Mucus None seen (None Seen) Urine Trichomonas None seen (NONE SEEN) Urine Yeast None (NONE SEEN) Urine Culture Reflexed Not indicated Triglycerides Level 235mg/dL (0-149) Cholesterol Level 204mg/dL (100-199) LDL Cholesterol, Calculated 119.000mg/dL (0-99) VLDL Cholesterol 47.000mg/dL HDL Cholesterol 38mg/dL (>39) Cholesterol/HDL Ratio 5.37 (0.0-4.4) Discharge Medications Discharge Medications Acetylcysteine (Nac) 500 Mg Capsule Unknown Dose PO DAILY (Reported) Amlodipine (Amlodipine) 5 Mg Tablet 5 MG PO DAILY (Reported) Ascorbic Acid (Vitamin C) 1,000 Mg Tab.chew 1,000 MG PO BID (Reported) Atorvastatin Calcium (Atorvastatin Calcium) 40 Mg Tablet 40 MG PO HS Prescribed by: THANH BOATENG MD Azithromycin (Zithromax (Z-Marshal)) 250 Mg Tablet 250 MG PO daily x 5 days ( Reported) Bupropion ER (Bupropion ER) 100 Mg Tablet.er 100 MG PO BID (Reported) Cholecalciferol (Vitamin D3) (Vitamin D3) 1,000 Unit Tab.chew 1,000 UNIT PO DAILY (Reported) Coconut Oil (Coconut Oil) 1,000 Mg Capsule 1,000 MG PO DAILY (Reported) Hydrochlorothiazide (Hydrochlorothiazide) 12.5 Mg Capsule 12.5 MG PO QAM ( Reported) Lactobacillus Acidophilus (Probiotic) 1 Each Capsule 1 EACH PO DAILY (Reported) Melatonin/Pyridoxine HCl (B6) (Melatonin 10 mg Tablet) 1 Each Tab.mphase 1 EACH PO HS (Reported) Multivitamin (Once Daily) 1 Each Tablet 1 EACH PO DAILY (Reported) [place]-3/Dha/Epa/Fish Oil (Fish Oil 1,000 mg Softgel) 1 Each Capsule 1 EACH PO DAILY (Reported) Prasterone (Dhea) (Dhea) 25 Mg Capsule Unknown Dose PO DAILY (Reported) Ranitidine (Zantac) 150 Mg Tablet 150 MG PO BID (Reported) As needed Buspirone (Buspirone) 10 Mg Tablet 10 MG PO BID PRN PRN For Anxiety (Reported) Dextromethorphan HBr (Robitussin) 15 Mg Capsule 15 MG PO DAILY PRN PRN For Cough (Reported) Guaifenesin/Dextromethorphan (Robitussin Cough-Chest Dm Liq) 200 Mg-10 Mg/5 Ml Liquid 118 ML PO every 4 hr PRN PRN For Cough (Reported) Meloxicam (Meloxicam) 7.5 Mg Tablet 7.5 MG PO BID PRN PRN For Pain (Reported) Polyethylene Glycol 3350 (Miralax) 17 Gm Powd.pack 17 GM PO DAILY PRN PRN For Constipation (Reported) Followup Plan Disposition: To home Follow-up plan Patient probably would benefit from outpatient speech therapy referral and perhaps occupational medicine. She was cleared by physical therapy on the day of discharge. It makes sense that she would want to talk to a manager diabetes about her echocardiogram abnormalities possibly a stress Myoview to risk stratify her before she would go there would make good sense. Really wants to speak with them about anticoagulation and whether she wants to wear a event monitor for month to determine whether she is atrial fibrillation. She is not entirely certain she did want anticoagulation long-term. Her chads score depending on how you calculate this event is either 1 or 3 as she has hypertension and this might be counted as a stroke event so full anticoagulation the setting of atrial fibrillation may or may not be indicated. Discharge Diet: No restrictions, Heart Healthy Discharge Activity: No restrictions Follow-up Provider: Matilde Oconnor MD Follow-up with PCP in: Other (call you probably should be seen in next 5-10 days for blood pressure and potential cardiology referral) Time spent Greater than 30 minutes Attending Statement See above. Patient may want event monitor for month to monitor for atrial fibrillation, stress test for risk stratification as she has multiple risk factors and echo abnormality, cardiology consultation for the aforementioned issues and whether to start anticoagulation or what that would even mean. She does need referral to speech and perhaps at least not occupational therapy evaluation as there may be some deficits that remain undetected copies to: Matilde Oconnor MD, Andris E MD Sep 22, 2016 15:25
--- NOTE | 2016-09-22 15:30 | PCM.DIMED ---
Discharge Instructions Date of Service Sep 22, 2016 Dates of Hospitalization Sep 21, 2016 at 13:55 Discharge Diagnosis Discharge Diagnosis TIA/possible CVA Test Results MRI and CT angiogram of head and neck were normal. No evidence of stroke Echocardiogram showed some minor abnormalities but these are not the source of potential stroke. They can be further discussed with primary care provider or manager of selection and assessment. Risk stratification by stress test may be warranted. Diet Heart Healthy Activity No restrictions Call your provider Weakness (unilateral), Other (come back to the emergency room if there is numbness or other strokelike symptoms) Patient Instructions Clear primary care provider and set up an appointment and start these new medications and we need to take sure that her blood pressure is well controlled now. Major change intervention is taking low-dose aspirin daily now. Follow-up Provider: Matilde Oconnor MD Follow-up with PCP in: Other (call probably apt within the next 2-4 weeks would be good) Wolfgang Hair MD Sep 22, 2016 15:30
[2016-09-22] MEDS ORDERED: ATOR40TA69 PO (15:32)
--- NOTE | 2016-09-22 16:52 | NUR ---
Discharge Pt discharged ambulatory with UA and at 1650. All discharge instructions reviewed and patient verbalized understanding. Dr. Hair added written ASA 81mg daily to dc med list. Reviewed stroke education at nd. All belongings with pt. IV dc'd w/o complication.
== END 2016-09-22 16:45 | disposition home or self-care (01) ==
LOC: SED 10:57 → MOC 13:55
PROVIDERS: ADMIT Specialist; ATTEND Specialist
DX: R53.1 Weakness (principal); F82 Specific developmental disorder of motor function; G45.9 Transient cerebral ischemic attack, unspecified; I10 Essential (primary) hypertension; E03.9 Hypothyroidism, unspecified; G43.909 Migraine, unspecified, not intractable, without status migrainosus; F17.210 Nicotine dependence, cigarettes, uncomplicated; E78.5 Hyperlipidemia, unspecified; F41.8 Other specified anxiety disorders; Z87.898 Personal history of other specified conditions
CPT/HCPCS: 36415; 70496; 70498; 70551; 80053; 80061; 81000; 83036; 83735; 84484; 85025; 85610; 92523; 92610; 93005; 97161; 99285; C8929; G0378; G8978; G8979; G8980; G8996; G8997; G8998; J1650; Q9967